=== PATIENT | male | born 1950 | race Caucasian/White ===

== ENCOUNTER → 2020-02-06 | Outpatient (CLI) | payer OTHER | LOC: LABNPT 09:00 | DX: U07.1 COVID-19 (principal) | CPT/HCPCS: 87635 ==

== ENCOUNTER 2022-01-28 08:32 | Observation (INO) | payer OTHER ==
[~2022-01-28] VITALS: Ht 175.3 cm; Wt 122.5 kg
[2022-01-28 08:30] VITALS: BP 147/80
--- NOTE | 2022-01-28 09:18 | Tele-ICU Progress Note ---
Subjective Date Seen by a Provider: Jan 28, 2022 Subjective/Events-last exam This virtual visit was conducted using real time audio/video. Thank you for asking us to see this patient for respiratory insufficiency due to CHF. Unknown if COPD present.Also with elev Troponin 0.27. Recent events: transferred from OSH, received Lasix/K there. No records available currently. PMH: Afib on Eliquis, htn, Agent Monona exposure, S/P RULobectomy. Chronic Lasix, Home O2. SH: smoking history; unknown. PE: VSS. Sleeping comfortably. O2 sat 96% on 3 LPM NC. HEENT: No obvious masses, adenopathy or JVD. Chest: coarse on auscultation. CV: RRR S1 S2 No murmur or added sounds. Abd: Non-tender. Bowel sounds Y. : Unremarkable. Peoples N. SALES MANAGER/psychiatric: Grossly intact. No obvious focal findings. Extremities: Trace edema. Capillary refill < 3 seconds. Skin: unremarkable. Results: Elevated Trop. 0.27, BNP 190s. CXR: not done yet. History from RN. Video assessment done using teleICU camera, rest of exam as per RN. A/P: Respiratory insufficiency: Continue present management with O2. Monitor for increasing oxygenation needs and/or need for intubation. Critical Care: critically ill patient. Awaiting cardiology consult. Discussed with JUAN JOSE Zamorano. Asked RN to reach out to eICU if any questions or concerns later. Time spent with patient/coordination of care with other health professionals (mins): 20 Sepsis Event Evaluation Height, Weight, BMI Height: '" Weight: lbs. oz. kg; BMI Method: Exam Exam Patient acknowledged, consented, and participated in this virtual visit which was conducted using real time audio/video Vital Signs Date Time Temp Pulse Resp B/P (MAP) Pulse Ox O2 Delivery O2 Flow Rate FiO2 01/28/22 09:02 53 Height & Weight Height: '" Weight: lbs. oz. kg; BMI Method: General Appearance: No Apparent Distress Cardiovascular: Systolic Murmur Peripheral Pulses: 1+ Dorsalis Pedis (R), 1+ Left Dors-Pedis (L) Extremity: Pedal Edema (See free text) Assessment/Plan Assessment/Plan See free text. Critical Care: Critically Ill Patient JADE RAMESH MD Jan 28, 2022 09:18
[2022-01-28] MEDS ORDERED: FLU QUAD HIGH DOSE 240 MCG/0.7 ML 2022-23 (FLUZONE) IM ONE (09:45)
[2022-01-28] MEDS ORDERED: ONDANSETRON 4 MG/2 ML (SDV) Z0FRAN IV PRN (14:00)
[2022-01-28] MEDS ORDERED: ONDANSETRON 4 MG (ZOFRAN) ORAL DISSOLVE TAB PO PRN (14:00)
[2022-01-28] MEDS ORDERED: polyethylene glycoL POWDER 17 GM (MIRALAX) PACK PO PRN (14:00)
[2022-01-28] MEDS ORDERED: LACTULOSE SYRUP 10GM/15ML (ENULOSE) 30ML UDC PO PRN (14:00)
[2022-01-28] MEDS ORDERED: ACETAMINOPHEN 325 MG TABLET PO PRN (14:00)
[2022-01-28] MEDS ORDERED: CALCIUM CARBONATE 500 MG (TUMS) TAB.CHEW PO PRN (14:00)
[2022-01-28] MEDS ORDERED: MELATONIN 3 MG TABLET PO PRN (14:00)
[2022-01-28] MEDS ORDERED: BISACODYL 10 MG SUPP (DULCOLAX) PR PRN (14:00)
[2022-01-28] MEDS ORDERED: MILK OF MAGNESIA 400 MG/5 ML 30 ML UDC PO PRN (14:00)
[2022-01-28] MEDS ORDERED: ANTACID SUSP 30 ML UDC (MYLANTA) PO PRN (14:00)
[2022-01-28 14:21] VITALS: BP 147/80
[2022-01-28] MEDS ORDERED: lisINopril 20 MG (PRINIVIL) TABLET PO NR (14:30)
[2022-01-28] MEDS ORDERED: APIXABAN 5 MG (ELIQUIS) TABLET PO NR (14:30)
[2022-01-28] MEDS ORDERED: PATIENT MAY USE OWN MED,SINGLE MED PO SCH (14:45)
--- NOTE | 2022-01-28 15:11 | Consultation-Cardiology ---
HPI-Cardiology Cardiology Consultation: Date of Consultation 01/28/22 Time Seen by a Provider: 13:30 Date of Admission Attending Physician Admitting Physician Admitting Physician: Priti Shook MD Attending Physician: Priti Shook MD Consulting Physician KEVYN VILLASEÑOR MD, MA, FACP, FACC, [facility] Physician requesting Card consult: Dr Shook HPI: Chief Complaint: Shortness of breath 72 yo man who presented to the ER at [facility] last night with increasing shortness of breath. Troponin was borderline elevated. He denies cp or palp or syncope. Shortness of breath with exertion is chronic, but worse in the last several days. No n/v/d. No swelling Review of Systems-Cardiology Review of Systems Constitutional: malaise; No weight loss, No weight gain Eyes: No vision change Ears/Nose/Throat: No ear discharge, No nasal drainage Respiratory: As described under HPI Cardiovascular: As described under HPI Gastrointestinal: No diarrhea, No nausea, No vomiting Genitourinary: No dysuria, No hematuria Musculoskeletal: back pain (chronic), joint pain Skin: No rash, No ulcerations Psychiatric/Neurological: No seizure, No focal weakness, No syncope Hematologic: No bleeding abnormalities [id number]-Oyiwkd Hx Patient Social History Smoking Status: Never a Smoker Have you traveled recently?: No Alcohol Use?: No Pt feels they are or have been: No Past Medical History PMH As described under Assessment. Family Medical History Family Medical History: Does not report fam h/o early CAD or SCD Allergies and Home Medications Allergies Coded Allergies: No Known Drug Allergies (Unverified , 01/28/22) Patient Home Medication List Home Medication List Reviewed: Yes Physical Exam-Cardiology Physical Exam Vital Signs/I&O 01/28/22 01/28/22 01/28/22 01/28/22 08:30 09:02 09:25 12:00 Pulse 59 53 47 Resp 22 20 B/P (MAP) 147/80 (102) Pulse Ox 93 95 O2 Delivery Nasal Cannula Nasal Cannula Nasal Cannula O2 Flow Rate 4.00 4.00 4.00 01/28/22 01/28/22 12:39 14:21 Pulse 58 58 Pulse Ox 95 Capillary Refill : Constitutional: AAO x 3, well-developed, well-nourished HEENT: EOMI, hearing is well preserved; No xanthelasmas are seen Neck: carotid pulses are 2 + bilaterally, with good upstrokes Respiratory: No accessory muscle use; other (Fair to good, bilateral air entry; prolonged exp phase) Cardiovascular: regular rate-rhythm, S1 and S2, systolic murmur (soft SUGEY at card base) Gastrointestinal: No tender; soft; No guarding, No rebound; audible bowel sounds Extremities: No clubbing, No cyanosis, No significant edema Neurologic/Psychiatric: oriented x 3, other (moves all limbs equally) Skin: No rash on exposed areas, No ulcerations on exposed areas Data Review Labs Laboratory Tests 01/28/22 14:00: Troponin I 0.042H A/P-Cardiology Assessment/Admission Diagnosis Shortness of breath, multifactorial: ac CHF, prob COPD, h/o RUL lobectomy, untreated JORDAN, ch A Fib with a slow vent response Discussion and Recomendations * Diuretics as needed and as tolerate * Echo * Hold off on Cardizem CD that he takes at home * Continue Eliquis * Monitor labs * Advised compliance with treatment for JORDAN KEVYN VILLASEÑOR MD FACP FAC CCDS Jan 28, 2022 15:11
[2022-01-28] MEDS ORDERED: EMPA10TA PO (15:37)
[2022-01-28] MEDS ORDERED: APIX5TAB PO (15:37)
[2022-01-28] MEDS ORDERED: FURO40TA4 PO (15:37)
[2022-01-28] MEDS ORDERED: MONT-40 PO (15:37)
[2022-01-28] MEDS ORDERED: GLIP10TA13 PO (15:37)
[2022-01-28] MEDS ORDERED: RT-ALBUINH INH (15:37)
[2022-01-28] MEDS ORDERED: ATOR40TA70 PO (15:37)
[2022-01-28] MEDS ORDERED: FLUT1DIS27 IH (15:37)
[2022-01-28] MEDS ORDERED: DILT-10 PO (15:37)
[2022-01-28] MEDS ORDERED: METF-399 PO (15:37)
[2022-01-28 16:00] VITALS: BP 153/84
[2022-01-28] MEDS ORDERED: predniSONE 20 MG TAB PO ONE (17:30)
--- NOTE | 2022-01-28 17:30 | History & Physical-Hospitalist ---
History of Present Illness HPI/Chief Complaint Luis A Escobar is a 72 year old male with PMH HTN, HLD, AFib, COPD, lung cancer s/p lobectomy, chronic respiratory failure with hypoxia, JORDAN non-compliant with CPAP, who presented with shortness of breath. He denies fevers and chills. He denies chest pain. He denies palpitations. He denies cough. He denies abdominal pain, nausea, vomiting, and diarrhea. He has lower extremity swelling which is unchanged. Source: patient, RN/MD Exam Limitations: no limitations Date Seen 01/28/22 Time Seen by a Provider: 11:00 Attending Physician PCP Admitting Physician: Priti Martínez MD Attending Physician: Priti Martínez MD Referring Physician Date of Admission Jan 28, 2022 at 08:32 Home Medications & Allergies Home Medications Reviewed patient Home Medication Reconciliation performed by pharmacy medication reconciliations medical technicians and/or nursing. Patients Allergies have been reviewed. Allergies Allergies Coded Allergies No Known Drug Allergies ([id number]/25/22) Past Gcfhuih-Dtmzpf-Kqxvxl Hx Patient Social History Tobacco Use?: No Smoking Status: Never a Smoker Substance use?: No Alcohol Use?: No Pt feels they are or have been: No Current Status Advance Directives: Yes Advance Directive Location: Home Communicates: Verbally Primary Language: Russian Preferred Spoken Language: Russian Is interpretation needed?: No Sensory deficits: Vision impairment, Hearing impairment Implanted or Applied Medical D: None Past Medical History Atrial Fibrillation, Chronic Edema/Swelling, High Cholesterol, Hypertension Lung Did You Recieve Any Treatments: Yes What Type of Treatment Did You: Surgical Intervention (lobectomy) Family Medical History No Pertinent Family Hx Review of Systems Constitutional: no symptoms reported EENTM: no symptoms reported Respiratory: short of breath Cardiovascular: no symptoms reported Gastrointestinal: no symptoms reported Physical Exam Physical Exam Vital Signs Vital Signs - First Documented 01/28/22 08:30 Pulse 59 Resp 22 B/P (MAP) 147/80 (102) Pulse Ox 93 O2 Delivery Nasal Cannula O2 Flow Rate 4.00 Capillary Refill : Height, Weight, BMI Height: '" Weight: lbs. oz. kg; 39.86 BMI Method: General Appearance: No Apparent Distress, Chronically ill, Obese HEENT: PERRL/EOMI, Pharynx Normal Neck: Normal Inspection, Supple Respiratory: No Respiratory Distress, Decreased Breath Sounds, Wheezing Cardiovascular: Bradycardia, Systolic Murmur Gastrointestinal: Normal Bowel Sounds, Soft Extremity: Normal Inspection, Pedal Edema, Swelling (2+) Neurologic/Psychiatric: Alert, Normal Mood/Affect Skin: Normal Color, Warm/Dry Results Results/Procedures Labs Patient resulted labs reviewed. Assessment/Plan Admission Diagnosis Elevated troponin Admission Status: Observation Assessment and Plan Elevated troponin Minimally elevated, stable Cardiology consulted Shortness of breath Chronic respiratory failure with hypoxia COPD Acute on chronic HFpEF Oxygen requirement at baseline Echo ordered Lasix Prednisone MAT protocol AFib with slow ventricular response Hold Cardizem Continue Eliquis HTN HLD Continue home meds History of lung cancer s/p lobectomy Obesity Clinically significant, no acute management needs Diagnosis/Problems Diagnosis/Problems (1) Elevated troponin Status: Acute (2) Shortness of breath Status: Acute (3) Chronic respiratory failure with hypoxia Status: Chronic (4) COPD (chronic obstructive pulmonary disease) Status: Acute Qualifiers: COPD type: COPD with acute exacerbation Qualified Codes: J44.1 - Chronic obstructive pulmonary disease with (acute) exacerbation (5) Acute on chronic heart failure with preserved ejection fraction (HFpEF) Status: Acute (6) Lung cancer Status: Chronic (7) S/P lobectomy of lung Status: Chronic (8) HTN (hypertension) Status: Chronic (9) HLD (hyperlipidemia) Status: Chronic (10) Atrial fibrillation with slow ventricular response Status: Acute (11) Obesity PRITI MARTÍNEZ MD Jan 28, 2022 17:30
[2022-01-28 20:00] VITALS: BP 139/79
[2022-01-28] MEDS ORDERED: APIXABAN 5 MG (ELIQUIS) TABLET PO SCH (21:00)
[2022-01-28] MEDS: SENNOSIDES 8.6 MG (SENOKOT) TAB PO SCH (21:19)
[2022-01-28] MEDS: DOCUSATE SODIUM 100 MG (COLACE) CAP PO SCH (21:21)
[2022-01-28] MEDS: APIXABAN 5 MG (ELIQUIS) TABLET PO SCH (21:21)
[2022-01-29] VITALS: BP 123/63
[2022-01-29 04:12] VITALS: BP 129/74
[2022-01-29 05:04] LABS: BASOPHILS % (AUTO) 0 % (0-10); EOSINOPHILS % (AUTO) 0 % (0-10); HEMATOCRIT 45 % (40-54); HEMOGLOBIN 14.6 g/dL (13.3-17.7); LYMPHOCYTES # (AUTO) 0.6 10^3/uL (1.0-4.0); LYMPHOCYTES % (AUTO) 8 % (12-44); MEAN CORPUSCULAR HEMOGLOBIN 30 pg (25-34); MEAN CORPUSCULAR HGB CONC 32 g/dL (32-36); MEAN CORPUSCULAR VOLUME 95 fL (80-99); MEAN PLATELET VOLUME 11.4 fL (9.0-12.2); MONOCYTES # (AUTO) 0.7 10^3/uL (0.0-1.0); MONOCYTES % (AUTO) 11 % (0-12); NEUTROPHILS # (AUTO) 5.3 10^3/uL (1.8-7.8); NEUTROPHILS % (AUTO) 80 % (42-75); PLATELET COUNT 146 10^3/uL (130-400); WHITE BLOOD COUNT 6.7 10^3/uL (4.3-11.0)
[2022-01-29 05:26] LABS: BILIRUBIN,TOTAL 0.8 MG/DL (0.1-1.0); CALCIUM 9.1 MG/DL (8.5-10.1); CREATININE SERUM 0.82 MG/DL (0.60-1.30); MAGNESIUM 1.9 MG/DL (1.6-2.4); POTASSIUM 3.9 MMOL/L (3.6-5.0); TOTAL PROTEIN 7.1 GM/DL (6.4-8.2)
[2022-01-29] MEDS ORDERED: predniSONE 20 MG TAB PO SCH (07:00)
[2022-01-29] MEDS ORDERED: lisINopril 20 MG (PRINIVIL) TABLET PO SCH (09:00)
[2022-01-29] MEDS ORDERED: ASPIRIN 81 MG CHEW (CHILDREN'S ASA) PO SCH (09:00)
--- NOTE | 2022-01-29 09:07 | Tele-ICU Progress Note ---
Progress Note video rounds completed 72 y/o male with Hx of COPD, lung cancer, s/p lobectomy admitted for SOB and respiratory failure Has JORDAN but doesn't use CPAP Overall doing well and improved Focused Exam Height, Weight, BMI Height: '" Weight: lbs. oz. kg; 39.86 BMI Method: Labs Laboratory Tests 01/29/22 04:53 Results Results/Procedures Labs Laboratory Tests 01/29/22 04:53 Patient resulted labs reviewed. Results Labs Labs Laboratory Tests 01/28/22 14:00: Troponin I 0.042H 01/29/22 04:53: White Blood Count 6.7, Red Blood Count 4.80, Hemoglobin 14.6, Hematocrit 45, Mean Corpuscular Volume 95, Mean Corpuscular Hemoglobin 30, Mean Corpuscular Hemoglobin Concent 32, Red Cell Distribution Width 14.1, Platelet Count 146, Mean Platelet Volume 11.4, Immature Granulocyte % (Auto) 0, Neutrophils (%) (Auto) 80H, Lymphocytes (%) (Auto) 8L, Monocytes (%) (Auto) 11, Eosinophils (%) (Auto) 0, Basophils (%) (Auto) 0, Neutrophils # (Auto) 5.3, Lymphocytes # (Auto) 0.6L, Monocytes # (Auto) 0.7, Eosinophils # (Auto) 0.0, Basophils # (Auto) 0.0, Immature Granulocyte # (Auto) 0.0, Sodium Level 140, Potassium Level 3.9, Chloride Level 104, Carbon Dioxide Level 24, Anion Gap 12, Blood Urea Nitrogen 22H, Creatinine 0.82, Estimat Glomerular Filtration Rate 94, BUN/Creatinine Ratio 27, Glucose Level 99, Calcium Level 9.1, Corrected Calcium 9.1, Magnesium Level 1.9, Total Bilirubin 0.8, Aspartate Amino Transf (AST/SGOT) 22, Alanine Aminotransferase (ALT/SGPT) 20, Alkaline Phosphatase 87, Total Protein 7.1, Albumin 4.0, Thyroid Stimulating Hormone (TSH) 3.54 CHARLY BARCENAS MD Jan 29, 2022 09:07
[2022-01-29] MEDS: APIXABAN 5 MG (ELIQUIS) TABLET PO SCH (09:30)
[2022-01-29] MEDS: SENNOSIDES 8.6 MG (SENOKOT) TAB PO SCH (09:31)
[2022-01-29] MEDS: DOCUSATE SODIUM 100 MG (COLACE) CAP PO SCH (09:31)
[2022-01-29] MEDS ORDERED: PRED10TA22 PO (13:15)
--- NOTE | 2022-01-29 13:39 | Progress Note - Cardiology ---
Cardiology SOAP Progress Note Subjective: Does not report cp No shortness of breath at rest No n/v/d No focal weakness No swelling Feels well and wishes to go home Objective: I&O/Vital Signs 01/29/22 01/29/22 01/29/22 01/29/22 04:12 07:00 08:00 08:00 Temp 36.3 36.7 Pulse 58 60 50 Resp 22 23 B/P (MAP) 129/74 (92) Pulse Ox 95 92 O2 Delivery Nasal Cannula Nasal Cannula O2 Flow Rate 2.00 2.00 01/29/22 01/29/22 11:24 13:00 Temp 36.3 Pulse 66 01/29/22 00:00 Intake Total 924 ml Output Total 1150 ml Balance -226 ml Constitutional: AAO x 3, well-developed, well-nourished Respiratory: No accessory muscle use; other (Fair to good, bilateral air entry; prolonged exp phase) Cardiovascular: regular rate-rhythm, S1 and S2, systolic murmur (soft SUGEY at card base) Gastrointestional: No tender; soft; No guarding, No rebound; audible bowel sounds Extremities: No clubbing, No cyanosis, No significant edema Neurologic/Psychiatric: oriented x 3, other (moves all limbs equally) Skin: No rash on exposed areas, No ulcerations on exposed areas Results/Procedures: Labs Laboratory Tests 01/28/22 14:00: Troponin I 0.042H 01/29/22 04:53: White Blood Count 6.7, Red Blood Count 4.80, Hemoglobin 14.6, Hematocrit 45, Mean Corpuscular Volume 95, Mean Corpuscular Hemoglobin 30, Mean Corpuscular Hemoglobin Concent 32, Red Cell Distribution Width 14.1, Platelet Count 146, Mean Platelet Volume 11.4, Immature Granulocyte % (Auto) 0, Neutrophils (%) (Auto) 80H, Lymphocytes (%) (Auto) 8L, Monocytes (%) (Auto) 11, Eosinophils (%) (Auto) 0, Basophils (%) (Auto) 0, Neutrophils # (Auto) 5.3, Lymphocytes # (Auto) 0.6L, Monocytes # (Auto) 0.7, Eosinophils # (Auto) 0.0, Basophils # (Auto) 0.0, Immature Granulocyte # (Auto) 0.0, Sodium Level 140, Potassium Level 3.9, Chloride Level 104, Carbon Dioxide Level 24, Anion Gap 12, Blood Urea Nitrogen 22H, Creatinine 0.82, Estimat Glomerular Filtration Rate 94, BUN/Creatinine Ratio 27, Glucose Level 99, Calcium Level 9.1, Corrected Calcium 9.1, Magnesium Level 1.9, Total Bilirubin 0.8, Aspartate Amino Transf (AST/SGOT) 22, Alanine Aminotransferase (ALT/SGPT) 20, Alkaline Phosphatase 87, Total Protein 7.1, Albumin 4.0, Thyroid Stimulating Hormone (TSH) 3.54 Laboratory Tests 01/29/22 04:53 A/P: Assessment: Shortness of breath, multifactorial: ac diastolic CHF, prob COPD, h/o RUL lobectomy, untreated JORDAN, ch A Fib with a slow vent response - echo on 01/29/22: LVEF 55-60%, mild LAE, mild (bruno grad 24 mmHg, valve area 1/6 sq com), mild AI, PASP 30-35 mmHg Minimal troponin elevation likely due to ac diastolic CHF (type 2 MO) Plan: * Hold off on Cardizem CD that he takes at home * Continue Eliquis and home dose of furosemide. Lisinopril increased * Advised compliance with treatment for JORDAN KEVYN VILLASEÑOR MD FACP [facility] CCDS Jan 29, 2022 13:39
[2022-01-29] MEDS ORDERED: LISI20TA26 PO (13:46)
--- NOTE | 2022-01-29 13:52 | Discharge Summary ---
Discharge Summary Hospital Course Problems/Dx: (1) Elevated troponin Status: Acute (2) Shortness of breath Status: Acute (3) Chronic respiratory failure with hypoxia Status: Chronic (4) COPD (chronic obstructive pulmonary disease) Status: Acute Qualifiers: Qualified Codes: J44.1 - Chronic obstructive pulmonary disease with (acute) exacerbation (5) Acute on chronic heart failure with preserved ejection fraction (HFpEF) Status: Acute (6) Lung cancer Status: Chronic (7) S/P lobectomy of lung Status: Chronic (8) HTN (hypertension) Status: Chronic (9) HLD (hyperlipidemia) Status: Chronic (10) Atrial fibrillation with slow ventricular response Status: Acute (11) Obesity Hospital Course Date of Admission: Jan 28, 2022 at 08:32 Admission Diagnosis : Elevated troponin Family Physician/Provider: Date of Discharge: 01/29/22 Discharge Diagnosis: COPD with acute exacerbation, bradycardia Hospital Course: Luis A Escobar is a 72 year old male with PMH HTN, HLD, AFib, lung cancer s/p lobectomy, chronic hypoxic respiratory failure, obesity, who presented with shortness of breath and was admitted with elevated troponin. Cardiology was consulted and assisted with his care. This remained stable and minimally elevated. He had no chest pain. He was bradycardic and his diltiazem was stopped. He was started on Lisinopril. He was treated with steroids for a COPD exacerbation. He remained at his baseline oxygen requirement. He was discharged home in improved, stable condition. Labs and Pending Lab Test: Laboratory Tests 01/28/22 14:00: Troponin I 0.042H 01/29/22 04:53: White Blood Count 6.7, Red Blood Count 4.80, Hemoglobin 14.6, Hematocrit 45, Mean Corpuscular Volume 95, Mean Corpuscular Hemoglobin 30, Mean Corpuscular Hemoglobin Concent 32, Red Cell Distribution Width 14.1, Platelet Count 146, Mean Platelet Volume 11.4, Immature Granulocyte % (Auto) 0, Neutrophils (%) (Auto) 80H, Lymphocytes (%) (Auto) 8L, Monocytes (%) (Auto) 11, Eosinophils (%) (Auto) 0, Basophils (%) (Auto) 0, Neutrophils # (Auto) 5.3, Lymphocytes # (Auto) 0.6L, Monocytes # (Auto) 0.7, Eosinophils # (Auto) 0.0, Basophils # (Auto) 0.0, Immature Granulocyte # (Auto) 0.0, Sodium Level 140, Potassium Level 3.9, Chloride Level 104, Carbon Dioxide Level 24, Anion Gap 12, Blood Urea Nitrogen 22H, Creatinine 0.82, Estimat Glomerular Filtration Rate 94, BUN/Creatinine Ratio 27, Glucose Level 99, Calcium Level 9.1, Corrected Calcium 9.1, Magnesium Level 1.9, Total Bilirubin 0.8, Aspartate Amino Transf (AST/SGOT) 22, Alanine Aminotransferase (ALT/SGPT) 20, Alkaline Phosphatase 87, Total Protein 7.1, Albumin 4.0, Thyroid Stimulating Hormone (TSH) 3.54 Home Meds Active Lisinopril 20 Mg Tablet 20 Mg PO DAILY 30 Days Prednisone 10 Mg Tab.ds.pk 10 Mg PO DAILY Take 6 tabs(60mg)daily,decrease by 1 tab(10MG)daily. Reported Eliquis (Apixaban) 5 Mg Tablet 5 Mg PO BID Tiazac (Diltiazem HCl) 240 Mg Capsule.er 240 Mg PO DAILY Advair 500-50 Diskus (Fluticasone/Salmeterol) 500 Mcg-50 Mcg/Dose Blst.w.dev 1 Each IH BID PRN Ventolin Hfa (Albuterol Sulfate) 1 Puff Puff 2 Puff INH Q4H PRN 1 PUFF = 90 MCG Atorvastatin Calcium 40 Mg Tablet 20 Mg PO HS TAKES OF A 40MG TAB Glipizide 10 Mg Tablet 10 Mg PO BID Metformin HCl 1,000 Mg Tablet 1,000 Mg PO BID Furosemide 40 Mg Tablet 40 Mg PO DAILY Jardiance (Empagliflozin) 10 Mg Tablet 10 Mg PO DAILY Montelukast Sodium 10 Mg Tablet 10 Mg PO HS Assessment/Pt Instructions See instructions Discharge Planning: >30 minutes discharge planning Discharge Instructions Discharge Diet: Low Sodium Diet Activity as Tolerated: Yes Consultations Cardiology Discharge Physical Examination Vital Signs Vital Signs Date Time Temp Pulse Resp B/P (MAP) Pulse Ox O2 Delivery O2 Flow Rate FiO2 01/29/22 13:00 66 01/29/22 11:24 36.3 01/29/22 08:00 23 92 Nasal Cannula 2.00 01/29/22 04:12 129/74 (92) General Appearance: No Apparent Distress, Obese Respiratory: No Respiratory Distress, Decreased Breath Sounds Cardiovascular: No Murmur, Bradycardia Gastrointestinal: Normal Bowel Sounds, Soft Extremity: Normal Inspection, Pedal Edema Skin: Normal Color, Warm/Dry Neurologic/Psychiatric: Alert, Normal Mood/Affect Allergies: Coded Allergies: No Known Drug Allergies (Unverified , 01/28/22) Discharge Summary Date of Admission Jan 28, 2022 at 08:32 Date of Discharge Discharge Date: Jan 29, 2022 Discharge Time: 13:48 Admission Diagnosis Elevated troponin Consults/Procedures Consulations Cardiology Discharge Diagnosis Elevated troponin Chronic respiratory failure with hypoxia COPD with acute exacerbation Acute on chronic HFpEF AFib with slow ventricular response HTN HLD History of lung cancer s/p lobectomy Obesity (1) Elevated troponin Status: Acute (2) Shortness of breath Status: Acute (3) Chronic respiratory failure with hypoxia Status: Chronic (4) COPD (chronic obstructive pulmonary disease) Status: Acute Qualifiers: Qualified Codes: J44.1 - Chronic obstructive pulmonary disease with (acute) exacerbation (5) Acute on chronic heart failure with preserved ejection fraction (HFpEF) Status: Acute (6) Lung cancer Status: Chronic (7) S/P lobectomy of lung Status: Chronic (8) HTN (hypertension) Status: Chronic (9) HLD (hyperlipidemia) Status: Chronic (10) Atrial fibrillation with slow ventricular response Status: Acute (11) Obesity EMMANUELLE MARTÍNEZ MD Jan 29, 2022 13:52
== END 2022-01-29 13:47 | disposition home or self-care (01) ==
LOC: UNDOADMOB 08:32 → ICU 08:32 → UNDODISOB 01-29 13:47
PROVIDERS: ADMIT Internal Medicine; ATTEND Internal Medicine
DX: J44.1 Chronic obstructive pulmonary disease with (acute) exacerbation (principal); I11.0 Hypertensive heart disease with heart failure; I50.33 Acute on chronic diastolic (congestive) heart failure; C34.90 Malignant neoplasm of unspecified part of unspecified bronchus or lung; E78.5 Hyperlipidemia, unspecified; E66.9 Obesity, unspecified; I48.20 Chronic atrial fibrillation, unspecified; G47.33 Obstructive sleep apnea (adult) (pediatric); I35.2 Nonrheumatic aortic (valve) stenosis with insufficiency; Z79.01 Long term (current) use of anticoagulants; Z79.899 Other long term (current) drug therapy; Z68.39 Body mass index [BMI] 39.0-39.9, adult; Z90.2 Acquired absence of lung [part of]
CPT/HCPCS: 36415; 80053; 83735; 84443; 84484; 85025; 93306

== ENCOUNTER → 2022-02-22 | Outpatient (CLI) | payer OTHER ==
[~2022-02-22] VITALS: Ht 175 cm; Wt 120.0 kg
[~2022-02-22] MED LIST: APIX5TAB PO; ATOR40TA70 PO; CATHETER FLUSH 10 ML SYR IVP PRN; DILT-10 PO; EMPA10TA PO; FLUT1DIS27 IH; FURO40TA4 PO; GLIP10TA13 PO; LISI20TA26 PO; METF-399 PO; MONT-40 PO; PRED10TA22 PO; REGADENOSON 0.4 MG/5 ML SYR (LEXISCAN) IV ONE; RT-ALBUINH INH
[2022-02-22 09:06] VITALS: BP 140/62
--- NOTE | 2022-02-24 03:55 | STRESS TEST ---
DATE OF SERVICE: 02/22/2022 RESTING AND POST REGADENOSON TECHNETIUM-99M TETROFOSMIN SPECT CT IMAGING ORDERING PHYSICIAN: Dr. Cano. CLINICAL DIAGNOSIS: Coronary artery disease. Baseline images were carried out after injection of 11 mCi of technetium-99m Tetrofosmin. This was followed by 0.4 mg regadenoson and 30.3 mCi of technetium-99m Tetrofosmin for stress imaging. The electrocardiogram showed atrial fibrillation with a controlled ventricular response throughout the study. The electrocardiogram did not change significantly with regadenoson infusion. The patient noted mild shortness of breath on a regadenoson infusion, which resolved in a few minutes. Review of images at rest and volume status does not indicate any distinct perfusion defect, consistent with significant myocardial ischemia or infarction. Left ventricular end-diastolic volume is 136 mL. Gated images show global left ventricular systolic function at the lower limit of normal. Ejection fraction is calculated to be 49%. There does not appear to be any distinct regional wall motion abnormality. CONCLUSIONS: 1. Moderate cardiomegaly. 2. Global left ventricular systolic function at the lower limit of normal, with a calculated ejection fraction of 49%. 3. No evidence of any significant myocardial ischemia or infarction. Job ID: [id number] DocumentID: [id number] Dictated Date: 02/23/2022 20:26:22 Wringer Operator Date: 02/24/2022 03:55:00 Dictated By: KEVYN CANO MD; TUTU; FACP; FACC;
== END ==
LOC: CARD 07:29
PROVIDERS: ATTEND Internal Medicine Cardiovascular Disease
DX: I25.10 Atherosclerotic heart disease of native coronary artery without angina pectoris (principal)
CPT/HCPCS: 78452; 93017

== ENCOUNTER → 2022-07-26 | Outpatient (CLI) | payer OTHER ==
[~2022-07-26] MED LIST changes: -CATHETER FLUSH 10 ML SYR IVP PRN; +HOLD METFORMIN - RECEIVED CONTRAST 20 ML VIAL IV SCH; +IOHEXOL 350 MG/ML 100 ML (OMNIPAQUE 350) VIAL IV ONE; +NS 100 ML (IVPB) BAG IV ONE; -REGADENOSON 0.4 MG/5 ML SYR (LEXISCAN) IV ONE
[2022-07-26 08:57] LABS: CALCIUM 9.3 MG/DL (8.5-10.1)
[2022-07-26 09:01] LABS: CREATININE SERUM 1.19 MG/DL (0.60-1.30)
--- NOTE | 2022-07-26 11:02 | Diagnostic Imaging Report ---
PROCEDURE: CT angiography of the head and CT angiography of the neck with and without contrast. TECHNIQUE: Contiguous noncontrast images were obtained from the skull base through the vertex. After intravenous contrast administration, helical CT angiography of the neck was performed. Source data was reformatted into 3D MIP projections. Delayed post contrast acquisition was also obtained. Auto Exposure Controls were utilized during the CT exam to meet ALARA standards for radiation dose reduction. INDICATION: Bilateral carotid artery stenosis. COMPARISON: None. FINDINGS: Noncontrast head CT demonstrates mild to moderate generalized parenchymal volume loss. No CT evidence of an acute territorial infarction. No intracranial hemorrhage, mass effect, hydrocephalus, or extra-axial fluid collections. The post contrast head CT demonstrates no abnormal intracranial enhancement. CTA demonstrates a conventional aortic arch. Moderate atherosclerotic calcifications. There is long segment high-grade narrowing of the left common carotid artery with the highest grade 90-99% stenosis proximally. The basilar, bilateral vertebral, right common carotid, bilateral internal carotid, anterior cerebral, middle cerebral, and posterior cerebral arteries demonstrate no high-grade narrowing, aneurysm, or dissection. The dural venous sinuses are normally opacified. No evidence of arterial venous anomaly. Moderate spondylotic changes in the cervical spine. No acute osseous findings. Mucosal thickening in the bilateral maxillary sinuses. Complete opacification of the right frontal sinus. The mastoids are clear. No acute findings in the visualized paravertebral soft tissues. Partially visualized groundglass opacity in the right lung apex posteriorly measures at least 2.3 cm. Emphysematous changes in the lung apices. IMPRESSION: 1. Long segment high-grade narrowing of the left common carotid artery with the greatest degree of stenosis proximally where it is 90-99% stenotic. 2. No other high-grade narrowing, aneurysm, or dissection involving the major arteries in the head and neck. No large vessel occlusion. 3. No acute intracranial CT findings. 4. Partially visualized groundglass opacity in the right lung apex measures at least 2.3 cm. No priors are available for comparison. Recommend a nonemergent noncontrast chest CT for further evaluation. 5. Paranasal sinus disease as above. Dictated by: Dictated on workstation # [id number]
== END ==
LOC: RAD 08:14
PROVIDERS: ATTEND Nurse Practitioner Family
DX: I65.23 Occlusion and stenosis of bilateral carotid arteries (principal); J34.89 Other specified disorders of nose and nasal sinuses; R91.8 Other nonspecific abnormal finding of lung field
CPT/HCPCS: 36415; 70496; 70498; 80048

== ENCOUNTER 2022-11-16 07:18 | Outpatient (CLI) | payer OTHER ==
[~2022-11-16] VITALS: Ht 175.3 cm; Wt 120.0 kg
[2022-11-16] VITALS (16 sets, daily range): BP systolic 110–145; BP diastolic 47–73
[~2022-11-16 07:18] MED LIST changes: -HOLD METFORMIN - RECEIVED CONTRAST 20 ML VIAL IV SCH; -IOHEXOL 350 MG/ML 100 ML (OMNIPAQUE 350) VIAL IV ONE; -NS 100 ML (IVPB) BAG IV ONE
[2022-11-16] MEDS ORDERED: MIDAZOLAM INJ 2 MG/2 ML VIAL IVP ONE (07:45)
[2022-11-16] MEDS ORDERED: fentaNYL INJECTION 100 MCG/2 ML VIAL IVP ONE (07:45)
[2022-11-16] MEDS ORDERED: NS IV 500 ML 500 ML IV PRN (07:45)
[2022-11-16] MEDS ORDERED: LIDOCAINE 1% INJ 10 ML VIAL INJ ONE (07:45)
[2022-11-16 07:51] LABS: HEMATOCRIT 50 % (40-54); HEMOGLOBIN 16.2 g/dL (13.3-17.7); MEAN CORPUSCULAR HEMOGLOBIN 31 pg (25-34); MEAN CORPUSCULAR HGB CONC 33 g/dL (32-36); MEAN CORPUSCULAR VOLUME 95 fL (80-99); MEAN PLATELET VOLUME 12.6 fL (9.0-12.2); PLATELET COUNT 172 10^3/uL (130-400); WHITE BLOOD COUNT 6.1 10^3/uL (4.3-11.0)
[2022-11-16] MEDS ORDERED: NS IV 1000 ML 1,000 ML ONE (08:01)
[2022-11-16 08:15] LABS: INR 0.9 (0.8-1.4); PROTHROMBIN TIME PATIENT 12.8 SEC (12.2-14.7)
[2022-11-16] MEDS ORDERED: HYDROcodone/ACETAMINOPHEN 5 MG/325 MG TABLET PO PRN (10:00)
[2022-11-16] MEDS ORDERED: NS IV 1000 ML 1,000 ML IV STA (10:01)
--- NOTE | 2022-11-16 10:02 | Pre-Op Note & Conscious Sedat ---
Pre-Operative Progress Note Date of Available H&P: Nov 16, 2022 Date H&P Reviewed: Nov 16, 2022 Time H&P Reviewed: 08:00 Pre-Op Diagnosis: lung mass Moderate Sedation PreProcedure Time 08:00 ASA Score 2 Airway Lungs Heart ASA score ASA 1: a normal healthy patient ASA 2: a patient with a mild systemic disease (mid diabetes, controlled hypertension, obesity ASA 3: a patient with a severe systemic disease that limits activity (angina, COPD, prior Myocardial infarction) ASA 4: a patient with an incapacitating disease that is a constant threat to life (CHF, renal failure) ASA 5: a moribund patient not expected to survive 24 hrs. (ruptured aneurysm) ASA 6: a declared brain- patient whose organs are being harvested. For emergent operations, add the letter E after the classification Mallampati Classification Grade 2 Sedation Plan Analgesia, Amnesia, Plan communicated to team members, Discussed options with patient/fam, Discussed risks with patient/fam The patient is an appropriate candidate to undergo the planned procedure, sedation, and anesthesia. The patient immediately re-assessed prior to indication. CARLITOS CHAN MD Nov 16, 2022 10:02
--- NOTE | 2022-11-16 10:46 | Diagnostic Imaging Report ---
INDICATION: Abnormal PET/CT study with right lung mass. Patient presents for CT-guided biopsy. TECHNIQUE: All CT scans use one or more of the following dose optimizing techniques: automated exposure control, MA and/or KvP adjustment based on patient size and exam type or iterative reconstruction. The patient was brought to the CT suite placed on table in the [id number] decubitus position. Axial imaging through the chest was performed to evaluate appropriate entry site. The procedure was performed utilizing conscious sedation with radiology nursing and constant patient monitoring. Patient was given a total of 0.5 mg of Versed intravenously and 50 mcg of fentanyl intravenously. Total procedure time is approximately 28 minutes. The right posterior thorax was prepped and draped in usual sterile fashion. Small amount of 1% lidocaine was utilized for local anesthesia. 18-gauge coaxial Temno needle was advanced and placed within the semisolid density in the right upper lobe posteriorly. 4 core biopsies were obtained. Blood patch was injected during needle removal. Post procedure images do demonstrate some naldo-lesional hemorrhage. No significant pneumothorax was demonstrated. The patient tolerated the procedure well and left the department in stable condition. IMPRESSION: Successful CT-guided biopsy of the right upper lobe, utilizing conscious sedation. Pathology results are currently pending. Dictated by: Dictated on workstation # [id number]
--- NOTE | 2022-11-16 16:17 | Diagnostic Imaging Report ---
INDICATION: Right lung biopsy. Expiratory radiograph of the chest was obtained. Airspace infiltrate in the right upper lobe is noted, correlating with the perilesional hemorrhage noted on the postprocedure CT. There is a calcified granuloma in the right midlung. Heart is enlarged. There is no effusion. There is no pneumothorax. IMPRESSION: No evidence of pneumothorax, status post right lung biopsy. Dictated by: Dictated on workstation # [id number]
== END 2022-11-16 11:45 ==
LOC: SDC 07:18
PROVIDERS: ATTEND Internal Medicine Endocrinology, Diabetes & Metabolism
DX: C34.91 Malignant neoplasm of unspecified part of right bronchus or lung (principal)
CPT/HCPCS: 36415; 71045; 77012; 85027; 85610; 85730; 99156